=== PATIENT | male | born 2000 | race Caucasian/White ===

== ENCOUNTER 2018-09-14 22:39 | Emergency (ER) | payer OTHER ==
--- NOTE | 2018-09-14 22:40 | EDPHY ---
H & P Time Seen by Provider: 09/14/18 22:40 HPI/ROS: HPI CHIEF COMPLAINT: Slip on ice, fall head strike with head laceration HISTORY OF PRESENT ILLNESS: This otherwise healthy 17-year-old male presents emergency room after states he was walking home tonight he had 2-3 beers he slipped on ice. He fell backwards with head strike. His head struck the ice. He sustained a vertically oriented mid occiput 5 cm laceration. Denies LOC. Does complain of a mild headache. No neck pain. No chest pain no shortness of breath. Reports to me his tetanus shot is up-to-date. Past Medical History: Denies significant medical history Past Surgical History: No recent surgery Social History: Denies drugs alcohol tobacco. Family History: Noncontributory ROS REVIEW OF SYSTEMS: 10 Systems were reviewed and negative with the exception of the elements mentioned in the history of present illness. Exam Constitutional triage nursing summary reviewed, vital signs reviewed, awake/ alert. Eyes normal conjunctivae and sclera, EOMI, PERRLA. HENT head/neck: Atraumatic on the neck exam, no midline neck pain or step-offs , midline occiput vertically oriented 5 cm laceration. Hematoma present. moist mucus membranes, no epistaxis, neck supple/ no meningismus, no raccoon eyes. Respiratory clear to auscultation bilaterally, normal breath sounds, no respiratory distress, no wheezing. Cardiovascular rate normal, regular rhythm, no murmur, no edema, distal pulses normal. Gastrointestinal soft, non-tender, no rebound, no guarding, normal bowel sounds, no distension, no pulsatile mass. Genitourinary no CVA tenderness. Musculoskeletal no midline vertebral tenderness, full range of motion, no calf swelling, no tenderness of extremities, no meningismus, good pulses, neurovascularly intact. Skin pink, warm, & dry, no rash, skin atraumatic. Neurologic awake, alert and oriented x 3, AAOx3, moves all 4 extremities equally, motor intact, sensory intact, CN II-XII intact, normal cerebellar, normal vision, normal speech. Psychiatric normal mood/affect. Heme/Lymph/Immune no lymphadenopathy. Differential Diagnosis: Includes but is not limited to in a particular order closed-head injury, intracranial bleed, skull fracture, traumatic subarachnoid, subdural, epidural, head laceration Medical Decision Making: Plan for this patient's tetanus shot is up-to-date. Will proceed with CT scan head without contrast rule out intracranial bleed or skull fracture. Patient's laceration need to be cleaned and then stapled closed. Re-evaluation: CT scan head without contrast negative for acute traumatic injury. Called to me by Dr. Rodriguez. Laceration Repair Procedure: Verbal Consent was obtained, Under sterile conditions, 5CM midline Occiput vertical laceration. The wound was copiously irrigated with sterile fluid, the wound was explored for foreign bodies there were none visualized, the wound was explored with a sterile glove to the base. There are no deep structures involved, including no arterial injury. NINE lilian were placed in this patient's laceration. He had good close approximation of the wound edges. He Tolerated this well. 1206AM: Patient tolerated the lilian well. Patient is 9 lilian placed. Patient understands to keep the lilian clean, dry and intact. Warm soapy water. [place] removed in [address] scan head without contrast negative for acute traumatic injury I went over this with the patient Patient's tetanus shot is up-to-date He is agreeable and wants to be discharged Return precautions discussed. Source: Patient Constitutional: Initial Vital Signs Temperature (C) 36.6 C 09/14/18 22:41 Heart Rate 96 09/14/18 22:41 Respiratory Rate 16 09/14/18 22:41 Blood Pressure 138/88 H 09/14/18 22:41 O2 Sat (%) 95 09/14/18 22:41 O2 Delivery Mode Room Air Allergies/Adverse Reactions: Penicillins Allergy (Verified 09/14/18 22:44) Home Medications: Medication Instructions Recorded NK [No Known Home Meds] 09/14/18 Medical Decision Making - Diagnostics Imaging Results: Imaging Impressions Head CT 09/14/18 22:48 Impression: 1. Normal CT brain without contrast. 2. Consider MRI of the brain, if there is continued clinical concern. Findings and recommendations discussed with Emergency Department physician, Satnam Christopher MD at 23:07 hour, 09/14/2018. Final report concurs with initial preliminary interpretation. Departure - Departure Disposition: Home, Routine, Self-Care Clinical Impression: Laceration of head Qualifiers: Encounter type: initial encounter Location of open wound of head: unspecified part of head Foreign body presence: without foreign body Qualified Code(s): S01.91XA - Laceration without foreign body of unspecified part of head, initial encounter Condition: Good Instructions: Laceration (ED), Concussion (ED), Head Injury (ED), Staple Care ( ED) Additional Instructions: 1. [place] to be removed in 7 days. 2. Warm soapy water on wound is okay starting tomorrow 3. Return to the emergency room if you have worsening headache vomiting or not doing well Referrals: NONE *PRIMARY CARE P,. [Primary Care Provider] - As per Instructions
[2018-09-15 00:31] VITALS: BP 130/85
== END 2018-09-15 00:30 | disposition home or self-care (01) ==
PROC: 0HQ0XZZ Repair Scalp Skin, External Approach (ICD-10-PCS; principal; 2018-09-14)
DX: S01.91XA Laceration without foreign body of unspecified part of head, initial encounter (principal); W01.198A Fall on same level from slipping, tripping and stumbling with subsequent striking against other object, initial encounter; Y93.K1 Activity, walking an animal; Y92.9 Unspecified place or not applicable; Y99.9 Unspecified external cause status